=== PATIENT | female | born 1995 | race Caucasian/White ===

== ENCOUNTER 2019-01-30 10:55 | Emergency (ER) | payer OTHER ==
[2019-01-30] MEDS ORDERED: KETOROLAC TROMETHAMINE INJ/PF 30 MG/1 ML SDV IV ONE (11:05)
[2019-01-30] MEDS ORDERED: DEXAMETHASONE SOD PHOS INJ 10 MG/1 ML VIAL IV ONE (11:05)
[2019-01-30] MEDS ORDERED: CLINDAMYCIN 600 MG/D5W RTU 600 MG/50 ML RTUPB IV ONE (11:05)
--- NOTE | 2019-01-30 11:06 | ER Document Report ---
ED Medical Screen (RME) - General Chief Complaint: Facial Swelling Stated Complaint: MOUTH PAIN Time Seen by Provider: 01/30/19 11:00 Mode of Arrival: Ambulatory Information source: Patient Notes: Patient is an otherwise healthy 23-year-old female who presents to the emergency department with complaints of right-sided facial swelling. She states that she had her right upper and lower wisdom teeth removed on Friday. She states the swelling got worse the next day, states she was seen at the [facility] they gave her a dose of oral steroids and sent her home. Patient states over the last couple of days she has developed a high fever and increased swelling. She is unable to fully open her mouth. There is significant swelling to the right side of her face. I have greeted and performed a rapid initial assessment of this patient. A comprehensive ED assessment and evaluation of the patient, analysis of test results and completion of the medical decision making process will be conducted by additional ED providers. Dictation of this chart was performed using voice recognition software; therefore, there may be some unintended grammatical errors. TRAVEL OUTSIDE OF THE [place] IN LAST 30 DAYS: No - Related Data Allergies/Adverse Reactions: No Known Allergies Allergy (Verified 01/30/19 10:56) Past Medical History Renal/ Medical History: Denies: Hx Peritoneal Dialysis Past Surgical History: Reports: Hx Oral Surgery Physical Exam - Vital signs Vitals: Temp Pulse Resp BP Pulse Ox 101.5 F H 115 H 16 131/76 H 97 01/30/19 10:59 01/30/19 10:59 01/30/19 10:59 01/30/19 10:59 01/30/19 10:59 Course - Vital Signs Vital signs: Temp Pulse Resp BP Pulse Ox 101.5 F H 115 H 16 131/76 H 97 01/30/19 10:59 01/30/19 10:59 01/30/19 10:59 01/30/19 10:59 01/30/19 10:59
[2019-01-30 11:36] LABS: HEMATOCRIT 39.9 % (36.0-47.0); HEMOGLOBIN 13.8 g/dL (12.0-15.5); MEAN CORPUSCULAR HEMOGLOBIN 30.2 pg (27.0-33.4); MEAN CORPUSCULAR HGB CONC 34.5 g/dL (32.0-36.0); MEAN CORPUSCULAR VOLUME 87 fl (80-97); PLATELET COUNT 310 10^3/uL (150-450); RED BLOOD COUNT 4.57 10^6/uL (3.72-5.28); RED CELL DISTRIBUTION WIDTH 13.2 % (11.5-14.0); WHITE BLOOD COUNT 21.3 10^3/uL (4.0-10.5)
[2019-01-30 11:51] LABS: ALANINE AMINOTRANSFERASE 7 U/L (9-52); ALBUMIN 4.5 g/dL (3.5-5.0); ALKALINE PHOSPHATASE 153 U/L (38-126); ANION GAP 14 (5-19); ASPARTATE AMINO TRANSFERASE 38 U/L (14-36); BILIRUBIN,DIRECT 0.7 mg/dL (0.0-0.4); BLOOD UREA NITROGEN 14 mg/dL (7-20); CALCIUM 10.3 mg/dL (8.4-10.2); CARBON DIOXIDE 22 mmol/L (22-30); CHLORIDE 103 mmol/L (98-107); GLUCOSE 113 mg/dL (75-110); POTASSIUM 4.2 mmol/L (3.6-5.0); SODIUM 138.8 mmol/L (137-145); TOTAL PROTEIN 7.7 g/dL (6.3-8.2)
[2019-01-30 12:09] LABS: ABSOLUTE LYMPHOCYTES# (MANUAL) 1.1 10^3/uL (0.5-4.7); ABSOLUTE MONOCYTES # (MANUAL) 1.1 10^3/uL (0.1-1.4); ABSOLUTE NEUTROPHILS# (MANUAL) 19.2 10^3/uL (1.7-8.2); BAND NEUTROPHILS % (MANUAL) 3 % (3-5); BASOPHILS % (MANUAL) 0 % (0-2); EOSINOPHILS % (MANUAL) 0 % (0-6); LYMPHOCYTES % (MANUAL) 5 % (13-45); MONOCYTES % (MANUAL) 5 % (3-13); SEGMENTED NEUTROPHILS % (MAN) 87 % (42-78); TOTAL CELLS COUNTED 100
[2019-01-30 12:10] LABS: PLATELET COMMENT ADEQUATE; RBC MORPHOLOGY COMMENT NORMO-CYTIC/CHROMIC; TOXIC GRANULATION SLIGHT; TOXIC VACUOLATION PRESENT
[2019-01-30] MEDS ORDERED: NORMAL SALINE 1000 ML 1,000 ML IV ONE (12:12)
--- NOTE | 2019-01-30 12:20 | RADIOLOGY REPORT (SQ) ---
EXAM DESCRIPTION: CT FACIAL AREA WITHOUT COMPLETED DATE/TIME: 01/30/2019 11:46 am REASON FOR STUDY: eval for abscess COMPARISON: None. TECHNIQUE: Noncontrasted images through the facial bones and orbits windowed for bone and soft tissu e. Additional coronal and sagittal reconstructed images reviewed. All images stored on PACS. All CT scanners at this facility use dose modulation, iterative reconstruction, and/or weight based d osing when appropriate to reduce radiation dose to as low as reasonably achievable (ALARA). [facility]: Dose Right [facility]: CareDose [facility]: Dose Right [facility]: Teradose 4D [facility]: Smart Technologies RADIATION DOSE: CT Rad equipment meets quality standard of care and radiation dose reduction techniq ues were employed. CTDIvol: 30.4 mGy. DLP: 597 mGy-cm. mGy. LIMITATIONS: Specific clinical information about the region of concern is not performed. Lack of IV contrast also limits assessment. FINDINGS: FACIAL BONES: No fracture or bone lesion. ORBITS: Intact. No fracture. Symmetric intact globes and retroorbital soft tissues. PARANASAL SINUSES: Clear. No significant mucosal thickening, mass or fluid. No nasal polyps. Maxill didier sinus outlets are patent. SOFT TISSUES: No definite abscess identified. There are an increased number of predominantly subcent imeter submandibular and anterior neck nodes. This looks like a bilateral process without any focal localizing abnormal nodes. Slightly heterogeneous low density in the floor of the mouth with mildly asymmetric right submandibular gland. No calcifications. INFERIOR BRAIN: Limited view. No acute findings. OTHER: No other significant finding. IMPRESSION: 1. Study limitations as above. 2. Submandibular and upper anterior neck adenopathy, fairly diffuse. 3. Heterogeneous appearance in the floor of the mouth. Is this the region of clinical concern? Diff icult to define any discrete abscess. 4. Potential mild asymmetry in the submandibular glands. Findings could be related to sialadenitis. No calcifications are identified. TECHNICAL DOCUMENTATION: JOB ID: [id number] Quality ID # [id number]: Final reports with documentation of one or more dose reduction techniques (e.g., Au tomated exposure control, adjustment of the mA and/or kV according to patient size, use of iterative reconstruction technique) 2010 [employer]- All Rights Reserved Reading location - IP/workstation name: [email or web address]
[2019-01-30] MEDS ORDERED: AMPICILLIN SOD/SULBACTAM 3 GM VIAL IV ONE (12:50)
--- NOTE | 2019-01-30 12:55 | ER Document Report ---
Addendum entered and electronically signed by ARABELLA ISLAS NP 01/30/19 15:37: Course - Re-evaluation Re-evalutation: 01/30/19 15:36 Patient's states that he does not want to wait for transport any longer. He states that he is going to drive his to [facility]. Due to the fact that the patient has a potential airway complication, I do not recommend that he drives his to another hospital as there is the potential that she could have airway occlusion and decompensate. I discussed the risks of this with the patient as well as her , they verbalized understanding of the risk and states that they will sign out AGAINST MEDICAL ADVICE so that they can be seen and evaluated at [facility]. Patient will sign AMA paperwork, they will still be given all of their transfer packet information to take with them to [facility] where they will be seen and evaluated by ER as well as ENT there. - Vital Signs Vital signs: Temp Pulse Resp BP Pulse Ox 99.4 F 87 16 123/67 98 01/30/19 15:19 01/30/19 15:19 01/30/19 15:19 01/30/19 15:19 01/30/19 15:19 - Laboratory Result Diagrams: 01/30/19 11:18 01/30/19 11:18 Laboratory results interpreted by me: 01/30/19 01/30/19 01/30/19 11:18 11:18 13:10 WBC 21.3 H Seg Neuts % (Manual) 87 H Lymphocytes % (Manual) 5 L Abs Neuts (Manual) 19.2 H Glucose 113 H Lactic Acid 0.6 L Calcium 10.3 H Direct Bilirubin 0.7 H AST 38 H ALT 7 L Alkaline Phosphatase 153 H Urine Protein Urine Ketones Urine Urobilinogen Ur Leukocyte Esterase 01/30/19 13:33 WBC Seg Neuts % (Manual) Lymphocytes % (Manual) Abs Neuts (Manual) Glucose Lactic Acid Calcium Direct Bilirubin AST ALT Alkaline Phosphatase Urine Protein 30 H Urine Ketones 20 H Urine Urobilinogen 2.0 H Ur Leukocyte Esterase TRACE H Original Note: ED Head/Face/Scalp Injury - General Chief Complaint: Facial Swelling Stated Complaint: MOUTH PAIN Time Seen by Provider: 01/30/19 11:00 Mode of Arrival: Ambulatory Information source: Patient TRAVEL OUTSIDE OF THE [place] IN LAST 30 DAYS: No - HPI Patient complains to provider of: Swelling Notes: Patient is here with complaints of swelling and pain to the area below her tongue and some mandibular area. [facility] she started to have some swelling and was seen at [facility] in the emergency department and was placed on clindamycin. She seems to be having worsening swelling and pain. [facility] and was instructed to go to the emergency department. Patient was seen by a provider out front who ordered labs, CT and clindamycin as well as Decadron and Toradol. Patient is noted to be febrile and tachycardic. She denies any difficulty with breathing or swallowing, but states that it does hurt to swallow. No chest pain or shortness of breath. No abdominal pain. No nausea, vomiting, diarrhea. No rash. No injury. She denies any other complaints at this time. - Related Data Allergies/Adverse Reactions: No Known Allergies Allergy (Verified 01/30/19 10:56) Past Medical History - General Information source: Patient - Social History Smoking Status: Current Every Day Smoker Family History: Reviewed & Not Pertinent Patient has suicidal ideation: No Patient has homicidal ideation: No Renal/ Medical History: Denies: Hx Peritoneal Dialysis Past Surgical History: Reports: Hx Oral Surgery Review of Systems - Review of Systems -: Yes All other systems reviewed and negative Physical Exam - Vital signs Vitals: Temp Pulse Resp BP Pulse Ox 101.5 F H 115 H 16 131/76 H 97 01/30/19 10:59 01/30/19 10:59 01/30/19 10:59 01/30/19 10:59 01/30/19 10:59 - Notes Notes: GENERAL: alert, cooperative, nontoxic, no distress. HEAD: normocephalic, atraumatic EYES: conjunctiva pink without discharge, no external redness or swelling. EARS: no external swelling, no external redness NOSE: atraumatic, no external swelling MOUTH/THROAT: mucous membranes moist and pink. Posterior pharynx difficult to visualize. Patient is noted to have trismus. Patient is noted to have some sublingual induration and tenderness. NECK: Patient noted to have some significant swelling and induration to the submental/mandibular area. This area is tender to palpation. Cervical lymphadenopathy noted. CHEST: no distress, lungs clear and equal throughout. No wheezing, rales, rhonchi. CARDIAC: regular rhythm, mild tachycardia, no murmur, normal capillary refill, normal pulses. No peripheral edema noted. ABDOMEN: Soft, nontender. BACK: full range of motion, no CVA tenderness. EXTREMITIES: full range of motion of all extremities. No redness, no swelling. NEURO: alert and oriented x 3, no focal deficits, full range of motion of all extremities. PYSCH: appropriate mood, affect. Patient is cooperative. SKIN: pink, warm, dry, no rash. Course - Re-evaluation Re-evalutation: 01/30/19 12:54 Case discussed with ENT, . Discussed concern for possible Dat's angina in this patient. He states that since the patient had recent dental surgery performed that this sounds more like an oral surgery consult. He recommends that I discussed the case with oral surgery. 01/30/19 13:07 Discussed the case with [facility] regarding potential transfer to [facility]. They are going to page out to their ENT and will call me back. We will continue to monitor the patient at this time. 01/30/19 13:35 Patient continues to be stable at this time. I received a call back from the [facility] transfer. She had discussed the case with her ENT civil engineering draftsperson who states that he would be happy to see the patient there in the emergency department and recommended an ER to ER transfer. I discussed the case with Dr. Arango, ER attending who has accepted the patient to the emergency department for evaluation. At this point we will arrange transport by EMS over to [facility] department for evaluation. We will continue to monitor at this time. 01/30/19 14:26 Currently awaiting transportation from [facility]. We will continue to monitor. 01/30/19 14:26 Lactate is normal, low suspicion for sepsis in this patient. She has been given IV fluids as well as broad-spectrum antibiotics including clindamycin and Unasyn. - Vital Signs Vital signs: Temp Pulse Resp BP Pulse Ox 101.5 F H 115 H 16 131/76 H 97 01/30/19 10:59 01/30/19 10:59 01/30/19 10:59 01/30/19 10:59 01/30/19 10:59 - Laboratory Result Diagrams: 01/30/19 11:18 01/30/19 11:18 Laboratory results interpreted by me: 01/30/19 01/30/19 01/30/19 11:18 11:18 13:10 WBC 21.3 H Seg Neuts % (Manual) 87 H Lymphocytes % (Manual) 5 L Abs Neuts (Manual) 19.2 H Glucose 113 H Lactic Acid 0.6 L Calcium 10.3 H Direct Bilirubin 0.7 H AST 38 H ALT 7 L Alkaline Phosphatase 153 H - Diagnostic Test Radiology reviewed: Image reviewed, Reports reviewed Discharge - Discharge Clinical Impression: Ludwigs angina Condition: Stable Disposition: [facility]
[2019-01-30 13:22] LABS: INTERNATIONAL RATION (INR) 1.07; PROTHROMBIN TIME 14.5 SEC (11.4-15.4)
[2019-01-30 14:25] LABS: APPEARANCE,URINE CLOUDY; BILIRUBIN,URINE NEGATIVE (NEGATIVE); GLUCOSE, URINE NEGATIVE (NEGATIVE); KETONES,URINE 20 mg/dL (NEGATIVE); LEUKOCYTE ESTERASE,URINE TRACE (NEGATIVE); NITRITE,URINE NEGATIVE (NEGATIVE); PROTEIN,URINE 30 mg/dL (NEGATIVE); URINE SPECIFIC GRAVITY 1.023
--- NOTE | 2019-01-30 14:25 | RADIOLOGY REPORT (SQ) ---
EXAM DESCRIPTION: CHEST SINGLE VIEW COMPLETED DATE/TIME: 01/30/2019 2:05 pm REASON FOR STUDY: fever COMPARISON: None. EXAM PARAMETERS: NUMBER OF VIEWS: One view. TECHNIQUE: Single frontal radiographic view of the chest acquired. RADIATION DOSE: NA LIMITATIONS: None. FINDINGS: LUNGS AND PLEURA: No consolidation, pneumothorax or pleural effusion. MEDIASTINUM AND HILAR STRUCTURES: No masses. Contour normal. HEART AND VASCULAR STRUCTURES: Heart normal in size. Normal vasculature. BONES: No acute findings. HARDWARE: None in the chest. IMPRESSION: NO ACUTE RADIOGRAPHIC FINDING IN THE CHEST. TECHNICAL DOCUMENTATION: JOB ID: [id number] 2010 [employer]- All Rights Reserved Reading location - IP/workstation name: [email or web address]
[2019-01-30 14:26] LABS: COLOR,URINE YELLOW
[2019-01-30 16:24] VITALS: BP 112/64
== END 2019-01-30 16:17 | disposition left against medical advice (07) ==
LOC: ER 10:55
DX: K12.2 Cellulitis and abscess of mouth (principal); R25.2 Cramp and spasm; F17.200 Nicotine dependence, unspecified, uncomplicated; R50.9 Fever, unspecified; R00.0 Tachycardia, unspecified; Z53.29 Procedure and treatment not carried out because of patient's decision for other reasons; Z98.890 Other specified postprocedural states
CPT/HCPCS: 99284; 96375; 96365; 96367; 36415; 87040; 87086; 84703; 85025; 85610; 80053; 81001; 83605; 71045; 70486; J0295; J1885; J1100